=== PATIENT | male | born 1965 | race Caucasian/White ===

== ENCOUNTER 2021-02-02 17:02 | Outpatient (RCR) | payer BC, SELFPAY ==
[2021-02-02] MEDS: COVID-19 VACC, MRNA(PFIZER)/PF 30 MCG/0.3 ML SYRINGE IM (12:50)
[2021-02-23] MEDS: COVID-19 VACC, MRNA(PFIZER)/PF 30 MCG/0.3 ML SYRINGE IM (12:27)
== END 2021-02-02 23:59 ==
LOC: IMMUN 17:02
PROVIDERS: Visit Provider Family Medicine
DX: Z23 Encounter for immunization (principal)
CPT/HCPCS: 0001A; 0002A; 91300

== ENCOUNTER 2024-09-06 19:46 | Emergency (ER) | payer BC, SELFPAY ==
[2024-09-06 19:46] VITALS: BP 174/97; PULSE 82; RESP 18; TEMP 36.2; O2SAT 98; BMI 25.4
--- NOTE | 2024-09-06 21:34 | EX.ED.GENINJ ---
HPI History of Present Illness Chief Complaint: Laceration Narrative Narrative: Chief complaint and HPI: Left wrist laceration. 59-year-old male presents for evaluation of a left wrist laceration. Patient states that he was cutting wire for an electric fence when he accidentally cut his wrist. Last tetanus was 2008. He denies any numbness or tingling. He is not blood thinners. Full range of motion of the wrist the hand and the fingers. Review of systems: See HPI Medications: As listed on the chart Allergies: As listed on the chart PFSH: Per chart Vital signs: As listed on the chart. Reviewed. Physical exam: Gen: A&O x3, NAD CV: Regular rate Resp: Nonlabored respiration Musc: Full ROM of the left wrist, hand, fingers, arm. 4 cm gaping laceration to the volar aspect of the left wrist, not deep but will need repaired, normal capillary refill, ulnar/radial pulses plus 2 out of 4, sensation intact Neuro: Alert, oriented Psych: Cooperative, appropriate mood and affect PFS PFSH Medical History no medical history Home Medications ?Medication ?Instructions ?Recorded ?Last Taken ?Type NK 09/06/24 Unknown History Allergy/AdvReac Type Severity Reaction Status Date / Time No Known Allergies Allergy Verified 09/06/24 19:46 Family History no significant family his Surgical History no surgical history Social History Smoking Status: Never smoker EXAM Physical Exam Const Vital Signs: 09/06/24 19:46 Temperature 97.2 F L Temperature Source Temporal Pulse Rate 82 Respiratory Rate 18 Blood Pressure 174/97 H Blood Pressure Mean 122 Pulse Ox 98 Oxygen Delivery Method Room Air MDM MDM MDM Narrative Medical decision making narrative: 59-year-old male presents for evaluation of left wrist laceration. Onset of injury was prior to arrival. Not up-to-date on tetanus. Tetanus updated. Laceration cleaned and repaired, see below. Patient stable to discharge home. Was given education on when sutures need to be removed. Monitor for signs of infection. Follow-up with PCP. Return precautions explained. He confirmed understanding of plan. Laceration Repair Indication: Laceration Location: Home 4 cm laceration to the left volar wrist Consent: Risks, benefits, and alternatives discussed with patient and consent obtained Procedure: A time out was performed. The area was prepped and draped in the usual sterile fashion. Local anesthesia was achieved using 1% Lidocaine with epinephrine. The wound was copiously irrigated. 9 sutures were placed using 4-0 Ethilon in an interrupted fashion. The estimated blood loss was minimal. A dressing was applied to the area with Bacitracin. The patient tolerated the procedure well without complications. Foreign Material: None Debridement: None Follow-up: Anticipatory guidance, as well as standard post-procedure care, was explained. Return precautions are given. Impression: 1. 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
[2024-09-06 21:46] VITALS: BP 132/86; PULSE 80; RESP 16; O2SAT 99
[2024-09-06] MEDS: Lidocaine 1% /Epi 1:100 (20ml) 20 ML Vial INFILT (21:59)
[2024-09-06] MEDS: Diphth,Pertuss(Acell),Tet Vac 0.5 ML Vial IM (22:00)
[2024-09-06 22:02] VITALS: BP 132/86; PULSE 80; RESP 16; TEMP 36.7; O2SAT 99
== END 2024-09-06 22:16 | disposition home or self-care (01) ==
PROVIDERS: Emergency Provider Surgery; Referring Provider Surgery; Visit Provider Surgery
DX: S61.512A Laceration without foreign body of left wrist, initial encounter (principal); W26.8XXA Contact with other sharp object(s), not elsewhere classified, initial encounter; Y93.89 Activity, other specified; Z23 Encounter for immunization
CPT/HCPCS: 12002; 90471; 90715; 99283